=== PATIENT | male | born 1935 | race Caucasian/White ===

== ENCOUNTER → 2016-09-18 | Outpatient (CLI) | payer MEDICARE, BC ==
[2016-09-18 11:37] LABS: CHLORIDE,CL 96 mmol/L (98-110); SODIUM,NA 135 mmol/L (136-146)
== END ==
LOC: MW.CHFP 10:48
PROVIDERS: ATTEND Emergency Medicine
DX: I10 Essential (primary) hypertension (principal); E11.9 Type 2 diabetes mellitus without complications; E29.1 Testicular hypofunction; G56.92 Unspecified mononeuropathy of left upper limb; D64.9 Anemia, unspecified
CPT/HCPCS: 36415; 80048; 83036; 84402; 84403; 85025; 99214